=== PATIENT | male | born 1965 | race Caucasian/White ===

== ENCOUNTER → 2017-12-31 | Outpatient (CLI) | payer BC, OTHER ==
--- NOTE | 2017-12-31 13:51 | Diagnostic Imaging Report ---
INDICATION: Right knee pain. AP, oblique, and lateral views of the right knee are obtained. No fracture or acute bony abnormality is seen. There is no significant joint effusion. There is minor medial joint space osteophyte formation. IMPRESSION: Minor degenerative changes. No acute fracture or acute bony abnormality. Dictated by: Dictated on workstation # [id number]
== END ==
LOC: RAD 13:16
PROVIDERS: ATTEND Nurse Practitioner Family
DX: M17.11 Unilateral primary osteoarthritis, right knee (principal)
CPT/HCPCS: 73562

== ENCOUNTER 2019-03-11 05:37 | Outpatient (CLI) | payer BC, OTHER ==
[~2019-03-11] VITALS: Ht 185 cm; Wt 93.1 kg
== END 2019-03-11 16:13 | disposition home or self-care (01) ==
LOC: PREOP 05:37
PROVIDERS: ATTEND Surgery
DX: Z01.818 Encounter for other preprocedural examination (principal)

== ENCOUNTER 2019-03-18 07:50 | Day surgery (SDC) | payer BC, OTHER ==
[~2019-03-18] VITALS: Ht 185 cm; Wt 93.1 kg
[2019-03-18] VITALS (9 sets, daily range): BP systolic 100–128; BP diastolic 59–81
[2019-03-18] MEDS: LACTATED RINGERS 1,000 ML IV PRN ×2 (08:40→11:25)
[2019-03-18] MEDS ORDERED: ceFAZolin 2 GM IV Premixed 50 ML ONE (08:42)
[2019-03-18] MEDS ORDERED: ceFAZolin 2 GM IV Premixed 50 ML IV ONE (09:45)
[2019-03-18] MEDS ORDERED: BUP/EPI 0.5% 1:200,000 (SENSORCAINE) 30 ML VIAL ONE (10:02)
[2019-03-18] MEDS ORDERED: ONDANSETRON 4 MG/2 ML (SDV) Z0FRAN ONE ×2 (10:19→11:38)
[2019-03-18] MEDS ORDERED: fentaNYL INJECTION 100 MCG/2 ML AMP ONE (10:19)
[2019-03-18] MEDS ORDERED: MIDAZOLAM 2 MG/2 ML (VERSED) VIAL ONE (10:19)
[2019-03-18] MEDS ORDERED: proPOfol 200 MG/20 ML (DIPRIVAN) VIAL IV ONE (10:19)
[2019-03-18] MEDS ORDERED: ROCURONIUM 10 MG/ML 5 ML SYRINGE IV ONE (10:19)
[2019-03-18] MEDS ORDERED: SEVOFLURANE (ULTANE) 15 ML INHAL SOLN ONE ×4 (10:19→11:38)
--- NOTE | 2019-03-18 10:22 | Progress Note-Pre Operative ---
Pre-Operative Progress Note H&P Reviewed The H&P was reviewed, patient examined and no changes noted. Date Seen by Provider: Mar 18, 2019 Time Seen by Provider: 09:15 Date H&P Reviewed: Mar 18, 2019 Time H&P Reviewed: 09:10 Pre-Operative Diagnosis: Umbilical hernia and Screening Colonoscopy SONAL PEREZ APRN Mar 18, 2019 10:22
[2019-03-18] MEDS ORDERED: HYDR-3816 PO (10:25)
--- NOTE | 2019-03-18 10:25 | Discharge Inst-Surgical ---
D/C Lap Instructions-KIDO Reconcile Patient Problems Problems Reviewed?: Yes New, Converted, or Re-Newed RX: RX on Chart Follow Up Appt in 2 weeks Activity as tolerated No driving for 24 hours No driving while on pain medications Incentive Spirometry use every 2 hours while awake Regular Diet Symptoms to Report: Fever over 101 degree F, Nausea/Vomiting Infection Signs and Symptoms to report: Increased redness, Foul odor of wound, Increased drainage Bathing instructions: May shower Operative Area Clean/Dry; Keep incision clean/dry If any problems/questions: Contact your physician or go to Emergency Room SONAL PEREZ APRN Mar 18, 2019 10:25
[2019-03-18] MEDS ORDERED: ONDANSETRON 4 MG/2 ML (SDV) Z0FRAN IVP PRN ×2 (10:30→12:00)
[2019-03-18] MEDS ORDERED: GLYCOPYRROLATE 0.2 MG/ML (ROBINUL) 2 ML VIAL ONE (10:30)
[2019-03-18] MEDS ORDERED: morphine INJ 10 MG/ML 1ML (SYR OR VIAL) IVP PRN (10:30)
[2019-03-18] MEDS ORDERED: ACETAMINOPHEN 325 MG TABLET PO PRN (10:30)
[2019-03-18] MEDS ORDERED: NEOSTIGMINE 3 MG/3 ML VIAL ONE (10:30)
[2019-03-18] MEDS ORDERED: HYDROcodone/APAP 5 MG/325 MG (LORTAB) TAB PO ONE (10:30)
[2019-03-18] MEDS ORDERED: LIDOCAINE PF 2% 5 ML (XYLOCAINE) VIAL ONE (10:30)
--- NOTE | 2019-03-18 11:40 | Progress Note-Post Operative ---
Post-Operative Progess Note Surgeon (s)/Workforce Consultant (s) Surgeon Dr. Prasanna Gonzalez M.D. Workforce Consultant: Chavo Perez APRN Pre-Operative Diagnosis Umbilical hernia and Screening Colonoscopy Post-Operative Diagnosis Umbilical hernia (2 cm), Mild chronic stage I external and internal hemorrhoids. Procedure & Operative Findings Date of Procedure 03/18/19 Procedure Performed/Findings Umbilical hernia repair with mesh, screening colonoscopy Anesthesia Type GET Estimated Blood Loss Estimated blood loss (mL): Minimal Specimens/Packing Specimens Removed 1) Hernia sac CHAVO PEREZ DIRECTOR OF SLEEP Mar 18, 2019 11:40
[2019-03-18] MEDS ORDERED: fentaNYL INJECTION 100 MCG/2 ML AMP IVP ONE (12:00)
[2019-03-18] MEDS ORDERED: HYDROmorphone 2 MG/ML VIAL (DILAUDID) IV ONE (12:00)
[2019-03-18] MEDS ORDERED: morphine INJ 10 MG/ML 1ML (SYR OR VIAL) IVP ONE (12:00)
[2019-03-18] MEDS ORDERED: HYDROcodone/APAP 5 MG/325 MG (LORTAB) TAB ONE (13:01)
--- NOTE | 2019-03-18 14:29 | Anesthesia-General Post-Op ---
General Patient Condition Mental Status/LOC: Same as Preop Cardiovascular: Satisfactory Nausea/Vomiting: Absent Respiratory: Satisfactory Pain: Controlled Complications: Absent Post Op Complications Complications None Follow Up Care/Instructions Patient Instructions None needed. Anesthesia/Patient Condition Patient Condition Patient was seen after the procedure and he was doing well, no complaints, stable vital signs, no apparent adverse anesthesia problems. JOSE DAVIES DO Mar 18, 2019 14:29
--- NOTE | 2019-03-18 15:09 | OPERATIVE REPORT ---
DATE OF SERVICE: 03/18/2019 PREOPERATIVE DIAGNOSES: Symptomatic reducible umbilical hernia, screening colonoscopy. POSTOPERATIVE DIAGNOSES: Small umbilical hernia with a fascial defect approximately 2 cm in size. Mild chronic stage I external and internal hemorrhoids, no polyps or any neoplasms identified. PROCEDURES: Open umbilical hernia repair with mesh and colonoscopy. SURGEON: Emil Esparza MD. TRAVEL SALES CONSULTANT: Chavo Flores APRN. ANESTHESIA: General endotracheal. ESTIMATED BLOOD LOSS: Minimal. FINDINGS: Small umbilical hernia with a fascial defect approximately 2 cm in size. Mild chronic stage I external and internal hemorrhoids, no polyps or any neoplasms identified. DISPOSITION: The patient tolerated the procedure well. INDICATIONS: The patient is a 53-year-old male, who has had some issues with diarrhea some time ago. He was unsure of the reason and does not report any change in diet. He states that over time this did resolve on its own. He has not had a colonoscopy up to this point in his life. He does not report any red blood per rectum nor any dark tarry stools. He also has had an umbilical outpouching for the past 2 years, which has grown larger in size and become painful. Upon examination in the office, he was found to have a reducible umbilical hernia, which was tender to palpation. DESCRIPTION OF PROCEDURE: The patient was brought to the operating room, laid supine on the table. After adequate IV pain and sedative medications and general endotracheal intubation, the abdomen was prepped and draped in standard surgical fashion. A 0.5% Marcaine with epinephrine was used to anesthetize the overlying skin in the supraumbilical rim and a crescent-shaped skin incision made using a 15 blade. The subcutaneous tissue was then opened using electrocautery. The hernia sac was identified and completely dissected out using blunt dissection as well as electrocautery. We followed the dissection to the fascial base with the size of the defect approximately 2 cm in size. The hernia sac was then opened using Metzenbaum scissors with only omentum within the hernia sac. This was then fully excised using electrocautery under direct visualization. A 6.4 round coated polypropylene mesh was then placed in the defect and sutured transfascially to the mesh in a concentric manner using interrupted 1-0 Prolene sutures. The umbilicus was then sutured to the mesh using a [id number] suture using 2-0 Vicryl suture. Subcutaneous tissue was then reapproximated using 2-0 Vicryl interrupted sutures and the skin was closed using 4-0 Monocryl running subcuticular suture. Wound was then cleaned and covered with Dermabond. The tonsil sponges were then placed into the umbilicus followed by 4 x 4 gauze followed by large Op-Site. Under the same anesthesia, we then proceeded with the colonoscopy portion of procedure. The patient was placed in frog leg position and a digital rectal examination was performed, which revealed mild chronic stage I external and internal hemorrhoids, not actively edematous nor inflamed and no bleeding. Normal sphincter tone was felt and there were no palpable masses. Prostate gland was palpable and appeared normal. The endoscope was then intubated into the anus and rectum gently insufflated. The endoscope was then advanced to the valves of Thorpe of the rectum with no polyps or any neoplasms identified. We then proceeded through the sigmoid colon where no diverticulosis identified. The endoscope was then advanced into the descending, transverse and ascending colon to the cecum. These segments were normal. There were no polyps or any neoplasms identified throughout the colon or rectum. Endoscope was then slowly withdrawn while taking a second look and suctioning of residual air with no additional findings. The patient tolerated the procedure well. We will start IV normal pain medication as well as a clear liquid diet. Once he is tolerating clears, has good pain control with oral pain medications, ambulating well, we will discharge him home. He will be instructed to do no heavy lifting or exertion for the next two weeks. He also does not need another colonoscopy for another 10 years. Job ID: [id number] DocumentID: [id number] Dictated Date: 03/18/2019 11:51:02 Ux Ui Designer Date: 03/18/2019 15:08:48 Dictated By: EMIL ESPARZA MD
== END 2019-03-18 13:55 | disposition home or self-care (01) ==
LOC: SDC 07:50
PROVIDERS: ATTEND Surgery
DX: Z12.11 Encounter for screening for malignant neoplasm of colon (principal); K42.9 Umbilical hernia without obstruction or gangrene; K64.0 First degree hemorrhoids; K64.8 Other hemorrhoids; G43.909 Migraine, unspecified, not intractable, without status migrainosus; Z90.89 Acquired absence of other organs; Z79.891 Long term (current) use of opiate analgesic; Z82.3 Family history of stroke; Z83.3 Family history of diabetes mellitus
CPT/HCPCS: 87081; 94664

== ENCOUNTER → 2021-09-11 | Outpatient (CLI) | payer BC, OTHER ==
[~2021-09-11] MED LIST: HYDR-34 PO
--- NOTE | 2021-09-12 11:53 | Diagnostic Imaging Report ---
PROCEDURE: US Gallbladder. TECHNIQUE: Multiple real-time grayscale images were obtained over the right upper quadrant in various projections. INDICATION: Right upper quadrant pain EXAMINATION: Ultrasound gallbladder 09/11/2021 FINDINGS: Liver is unremarkable in appearance with no focal masses appreciated. No intrahepatic biliary dilatation is seen. The gallbladder is normal in size. No cholelithiasis is appreciated. There is no pericholecystic fluid. Gallbladder wall is at the upper limits of normal in thickness. Common duct normal in size. Pancreas obscured by overlying bowel gas. Visualized aorta and IVC unremarkable. Right kidney 11.8 cm in length. There is no hydronephrosis. There is no ascites. IMPRESSION: 1. Unremarkable visualized right upper quadrant structures other than the gallbladder wall towards the upper limits of normal in thickness but no other evidence for acute cholecystitis. Dictated by: Dictated on workstation # [id number]
== END ==
PROVIDERS: ATTEND Surgery
DX: R10.11 Right upper quadrant pain (principal); R19.7 Diarrhea, unspecified
CPT/HCPCS: 76705

== ENCOUNTER → 2021-09-17 | Outpatient (CLI) | payer BC, OTHER ==
[~2021-09-17] MED LIST changes: +CATHETER FLUSH 10 ML SYR IVP PRN
--- NOTE | 2021-09-17 12:58 | Diagnostic Imaging Report ---
INDICATION: Right upper quadrant pain. 5.47 mCi of mebrofenin was utilized. 8 ounces of Ensure was given orally for fatty meal. FINDINGS: There is prompt uptake of isotope by the liver. Gallbladder is visualized and normal fashion. There is free flow of isotope into the small bowel. The ejection fraction was calculated to be 40% at 50 minutes. IMPRESSION: Normal hepatobiliary study. The normal ejection fraction of the gallbladder. Dictated by: Dictated on workstation # [id number]
== END ==
LOC: CARD 10:00
PROVIDERS: ATTEND Surgery
DX: R10.11 Right upper quadrant pain (principal); R19.7 Diarrhea, unspecified
CPT/HCPCS: 78227; A9537

== ENCOUNTER → 2022-03-06 | Outpatient (CLI) | payer OTHER ==
[~2022-03-06] VITALS: Ht 185.5 cm; Wt 95.5 kg
[~2022-03-06] MED LIST changes: -CATHETER FLUSH 10 ML SYR IVP PRN
== END ==
LOC: PREOP 05:31
PROVIDERS: ATTEND Orthopaedic Surgery
DX: Z01.818 Encounter for other preprocedural examination (principal); S83.242A Other tear of medial meniscus, current injury, left knee, initial encounter; M22.42 Chondromalacia patellae, left knee

== ENCOUNTER 2022-03-13 09:28 | Day surgery (SDC) | payer OTHER ==
--- NOTE | 2022-03-05 13:56 | HISTORY AND PHYSICAL ---
DATE OF SERVICE: ADMISSION HISTORY AND PHYSICAL This will be for outpatient surgery on 03/13/2022 for left knee arthroscopy. HISTORY OF PRESENT ILLNESS: The patient is a 56-year-old gentleman with complaints of progressively worsening left knee pain. He reports a several-month history of progressively worsening discomfort. He reports pain following a golf outing, he reports he twisted and felt pain in the medial aspect of his knee and had some mild swelling. He reports that this is not improved with home exercise program, anti-inflammatories, and activity modifications. He reports pain on the medial aspect of the knee. He denies radicular symptoms. He reports a dull ache that is worse with sitting for prolonged periods and when he gets up and moves about. He reports it feels exactly the same as his right knee felt prior to his knee arthroscopy. Due to functional impairment and failure to improve with conservative measures, the patient elected to proceed with surgical intervention. REVIEW OF SYSTEMS: No chest pain, no shortness of breath, no dysuria. PAST MEDICAL HISTORY: Unremarkable. PAST SURGICAL HISTORY: Right knee arthroscopy and appendectomy. SOCIAL HISTORY: The patient drinks alcohol socially. Denies tobacco use. FAMILY HISTORY: Significant for diabetes. PRIMARY CARE PROVIDER: Dr. Avalos. MEDICATIONS: No current medications. ALLERGIES: No known drug allergies. RADIOGRAPHS: Revealed mild medial and patellofemoral joint space narrowing. PHYSICAL EXAMINATION: GENERAL: The patient is well-developed, well-nourished, in no acute distress. HEENT: Normocephalic, atraumatic. Pupils are equal, round and reactive to light. Oropharynx is clear. NECK: Supple, with no lymphadenopathy. LUNGS: Clear to auscultation bilaterally. HEART: Regular rate and rhythm. ABDOMEN: Soft, nontender, nondistended. EXTREMITIES: The left knee demonstrates tenderness along his medial joint line, has pain medially with Rustam's. He has audible click with Rustam's medially. No varus or valgus laxity. Negative anterior and posterior drawer. 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 PLAN: Left knee arthroscopy with partial medial meniscectomy and chondroplasty. The risks, benefits, options, ramifications and recovery were discussed at length with the patient. He understands and wishes to proceed. Job ID: [id number] DocumentID: [id number] Dictated Date: 03/05/2022 13:48:46 Cloth Printer Helper Date: 03/05/2022 13:55:33 Dictated By: SPEEDY RAMOS MD
[~2022-03-13] VITALS: Ht 185.5 cm; Wt 95.5 kg
[2022-03-13] VITALS (11 sets, daily range): BP systolic 119–141; BP diastolic 75–92
[~2022-03-13 09:28] MED LIST changes: +HYDROcodone/APAP 7.5 MG/325 MG (LORTAB, LORCET PLUS) TABLET PO PRN
[2022-03-13] MEDS ORDERED: ONDANSETRON 4 MG/2 ML (SDV) Z0FRAN ONE (09:45)
[2022-03-13] MEDS ORDERED: LACTATED RINGERS 1,000 ML IV PRN (09:45)
[2022-03-13] MEDS ORDERED: SEVOFLURANE (ULTANE) 15 ML INHAL SOLN ONE ×2 (09:45→11:17)
[2022-03-13] MEDS ORDERED: proPOfol 200 MG/20 ML (DIPRIVAN) VIAL IV ONE (09:45)
[2022-03-13] MEDS ORDERED: ceFAZolin INJECTION 1,000 MG VIAL IV ONE (09:45)
[2022-03-13] MEDS ORDERED: LIDOCAINE PF 2% 5 ML (XYLOCAINE) VIAL ONE (09:45)
[2022-03-13] MEDS ORDERED: fentaNYL INJ 100 MCG/2 ML AMP ONE (09:46)
[2022-03-13] MEDS ORDERED: MIDAZOLAM 2 MG/2 ML (VERSED) VIAL ONE (09:46)
[2022-03-13] MEDS ORDERED: ceFAZolin 1 GM/NS 50 ML (SDC/OR ONLY) IV ONE ×2 (10:00)
[2022-03-13] MEDS ORDERED: BUPIVACAINE 0.25% 30 ML (SENSORCAINE) VIAL ONE (10:03)
[2022-03-13] MEDS ORDERED: morphine PF (DURAMORPH) 10 MG/10 ML AMP ONE (10:03)
--- NOTE | 2022-03-13 10:37 | Progress Note-Pre Operative ---
Pre-Operative Progress Note Date of Available H&P: Mar 05, 2022 Date H&P Reviewed: Mar 13, 2022 Time H&P Reviewed: 10:27 Changes from last HP none Pre-Operative Diagnosis: left medial meniscus tear and chondromalacia SPEEDY RAMOS MD Mar 13, 2022 10:37
--- NOTE | 2022-03-13 10:38 | Progress Note-Post Operative ---
Post-Operative Progess Note Surgeon (s)/Pediatric Urologist (s) Surgeon SPEEDY RAMOS MD Pediatric Urologist: Carlos Enrique Bal Pre-Operative Diagnosis left medial meniscus tear and chondromalacia Post-Operative Diagnosis left medial and lateral meniscus tears and chondromalacia of the medial and lateral femoral condyles Procedure & Operative Findings Date of Procedure 03/13/22 Procedure Performed/Findings left knee arthroscopic partial medial and lateral meniscectomies and chondroplasty of medial and lateral femoral condyles Anesthesia Type GETA Estimated Blood Loss Estimated blood loss (mL): minimal Specimens/Packing Specimens Removed none Packing: none SPEEDY RAMOS MD Mar 13, 2022 10:38
[2022-03-13] MEDS: morphine PF (DURAMORPH) 10 MG/10 ML AMP IJ ONE (11:18)
[2022-03-13] MEDS ORDERED: HYDROmorphone 2 MG/ML VIAL (DILAUDID) IV ONE (11:30)
[2022-03-13] MEDS ORDERED: ONDANSETRON 4 MG/2 ML (SDV) Z0FRAN IVP PRN (11:30)
[2022-03-13] MEDS ORDERED: morphine INJ 10 MG/ML 1ML (SYR OR VIAL) IVP ONE (11:30)
[2022-03-13] MEDS ORDERED: BUPIVACAINE 0.25% 30 ML (SENSORCAINE) VIAL IJ ONE (11:36)
[2022-03-13] MEDS ORDERED: morphine INJ 10 MG/ML 1ML (SYR OR VIAL) ONE (11:48)
[2022-03-13] MEDS ORDERED: HYDROcodone/APAP 7.5 MG/325 MG (LORTAB, LORCET PLUS) TABLET PO ONE (12:26)
--- NOTE | 2022-03-13 13:04 | Anesthesia-General Post-Op ---
General Patient Condition Mental Status/LOC: Same as Preop Cardiovascular: Satisfactory Nausea/Vomiting: Absent Respiratory: Satisfactory Pain: Controlled Complications: Absent Post Op Complications Complications None Follow Up Care/Instructions Patient Instructions None needed. Anesthesia/Patient Condition Patient Condition Patient was doing well after the procedure with no complaints, stable vital signs, no apparent adverse anesthesia problems. No complications reported per nursing. JOSE DAVIES DO Mar 13, 2022 13:04
--- NOTE | 2022-03-13 13:30 | Physical Therapy Ortho Eval ---
PT Orthopedic Evaluation Type of Surgery Knee Scope left side WBAT Prior Level of Function Current Living Status: Spouse Locomotion (Upon Admit): Independent Established Durable Medical Eq: Crutches Subjective Subjective Patient in bed pre tx, agrees to PT, has no complains of pain. Patient has been using crutches recently and is familiar with it, doesn't need training in that aspect. Entry Into Home: Stairs With Railing Steps Into Home: 2 Motor Control Motor Control: Motor Control WNL ROM left knee extension 0 degrees, flexion 95 degrees Transfer SCALE: Activities may be completed with or without assistive devices. 2-Xsyveehygh-axpxhed completes the activity by him/herself with no assistance from a helper. 5-Set-up or Clean-up Assistance-helper sets up or cleans up; patient completes activity. [place] assists only prior to or following the activity. 4-Supervision or Touching Assistance-helper provides verbal cues and/or touching/steadying and/or contact guard assistance as patient completes activity. Assistance may be provided throughout the activity or intermittently. 3-Partial/Moderate Assistance-helper does LESS THAN HALF the effort. [place] lifts, holds or supports trunk or limbs, but provides less than half the effort. 2-Substantial/Maximal Assistance-helper does MORE THAN HALF the effort. [place] lifts or holds trunk or limbs and provides more than half the effort. 0-Thppzxukv-txouau does ALL the effort. Patient does none of the effort to complete the activity. Or, the assistance of 2 or more helpers is required for the patient to complete the activity. If activity was not attempted, code reason: 7-Patient Refused. 9-Not Applicable-not attempted and the patient did not perform the activity before the current illness, exacerbation or injury. 10-Not Attempted due to Environmental Limitations-(lack of equipment, weather restraints, etc.). 88-Not Attempted due to Medical Conditions or Safety Concerns. Gait Summary/Comments Refresher education on the correct way to go up and down stairs with crutches and without crutches. Treatment Rendered Treatment: Therapeutic Exercises Exercise Instruction: Quad Sets, Heel Slides, Ankle Pumps Assessment/Goals Goal Time Frame: 1 Visit Understands HEP: Yes Plan Treatment Plan: Discharge PT/Family Agrees to Plan: Yes Time Time In: 1256 Time Out: 1306 Total Billed Treatment Time: 10 Billed Treatment Time 1 visit EVL 10' ALICIA MILLS PT Mar 13, 2022 13:30
--- NOTE | 2022-03-13 21:48 | OPERATIVE REPORT ---
DATE OF SERVICE: 03/13/2022 PREOPERATIVE DIAGNOSES: 1. Left knee medial meniscus tear. 2. Left knee chondromalacia of the medial femoral condyle. POSTOPERATIVE DIAGNOSES: 1. Left knee medial meniscus tear. 2. Left knee lateral meniscus tear. 3. Left knee chondromalacia of the medial femoral condyle. 4. Left knee chondromalacia of the lateral femoral condyle. PROCEDURES: 1. Left knee arthroscopic partial medial meniscectomy. 2. Left knee arthroscopic partial lateral meniscectomy. 3. Left knee arthroscopic chondroplasty of the medial femoral condyle. 4. Left knee arthroscopic chondroplasty of the lateral femoral condyle. SURGEON: Alexis Ramos MD SHAREBROKER: Carlos Enrique Bal, who assisted throughout the procedure and closed the incisions. ANESTHESIA: General endotracheal by Dr. Murphy. TOURNIQUET TIME: Not applicable. ESTIMATED BLOOD LOSS: Minimal. DRAINS: None. COMPLICATIONS: None. POSTOPERATIVE PLAN: Routine arthroscopy protocol. The patient was transferred to the recovery room awake and in stable condition. STATEMENT OF MEDICAL NECESSITY: The patient is a 56-year-old gentleman with complaints of left medial knee pain, catching and locking. He had large effusions, tender along his medial joint line and pain medially with Rustam's. He tried rest, activity modifications, anti-inflammatories without relief. Due to functional impairment and failure to improve with conservative measures, the patient elected to proceed with surgical intervention. Examination under anesthesia revealed range of motion of 0/0/135 with negative Jennifer, negative anterior and posterior drawer. No varus or valgus laxity and negative pivot shift. ARTHROSCOPIC FINDINGS: Patella and trochlea demonstrated no significant chondral abnormalities. Medial and lateral gutters were clear. The ACL and PCL were intact. Medial compartment demonstrated complex tear of the posterior horn of the medial meniscus involving approximately one-third of the posterior horn. In addition, there were grade II chondral flaps of the central portion of femoral condyle in a 10 x 15 area. The lateral compartment demonstrated a tear of the posterior horn body junction involving approximately 30% of the junction with a grade III chondral flap over the anterior aspect of the femoral condyle in a 10 x 10 area. PROCEDURE IN DETAIL: After risks and benefits of procedure were discussed and questions were answered, informed consent was signed and placed on chart, the operative site was confirmed in the preoperative holding area initialed by the surgeon. The patient was transferred to the operating room. After adequate levels of general endotracheal anesthetic were obtained, a timeout was called, confirming the operative sites. Examination under anesthesia was performed with above findings noted. The left lower extremity was prepped and draped in the usual sterile fashion. Knee joint was injected with 60 mL of fluid and an inferolateral portal was placed for the arthroscope under direct visualization, inferior medial portal was created. The menisci and cruciates carefully probed with above findings noted. The unstable chondral flaps on the medial femoral condyle were debrided with shaver back to a stable edge and the posterior horn of the medial meniscus was debrided with a biter and shaver back to a stable edge. This was carefully probed with no further tearing or instability noted. The scope was redirected into the medial compartment and unstable chondral flaps on the medial femoral condyle were debrided with a shaver back to a stable edge and the posterior horn and body junction of the lateral meniscus was debrided with a biter and shaver back to a stable edge. This was carefully probed with no further tearing or instability noted. The knee was copiously irrigated. The portal sites were closed with 4-0 nylon in septic fashion. Knee was injected with Duramorph. Port sites were infiltrated with plain Marcaine and soft dressing was applied and the patient was transferred to the recovery room awake and in stable condition. Job ID: [id number] DocumentID: [id number] Dictated Date: 03/13/2022 11:24:48 Toll Settlement Clerk Date: 03/13/2022 21:47:20 Dictated By: ALEXIS RAMOS MD
== END 2022-03-13 13:31 | disposition home or self-care (01) ==
LOC: SDC 09:28
PROVIDERS: ATTEND Orthopaedic Surgery
DX: S83.282A Other tear of lateral meniscus, current injury, left knee, initial encounter (principal); S83.242A Other tear of medial meniscus, current injury, left knee, initial encounter; M94.262 Chondromalacia, left knee
CPT/HCPCS: 87081

== ENCOUNTER 2023-02-12 05:34 | Outpatient (CLI) | payer OTHER ==
[~2023-02-12] VITALS: Ht 185.5 cm; Wt 95.5 kg
[~2023-02-12 05:34] MED LIST changes: -HYDROcodone/APAP 7.5 MG/325 MG (LORTAB, LORCET PLUS) TABLET PO PRN
== END 2023-02-14 12:42 | disposition home or self-care (01) ==
LOC: PREOP 05:34
PROVIDERS: ATTEND Orthopaedic Surgery
DX: Z01.818 Encounter for other preprocedural examination (principal)

== ENCOUNTER 2023-02-19 09:19 | Day surgery (SDC) | payer OTHER ==
--- NOTE | 2023-02-12 14:41 | HISTORY AND PHYSICAL ---
DATE OF SERVICE: 02/19/2023 This will be for outpatient surgery on 02/19/2023 for left knee arthroscopy. HISTORY: The patient is a 57-year-old gentleman who previously underwent left knee arthroscopy and had been doing well until working out. He felt and heard a pop and since then has had swelling, catching and locking in his knee and was treated with an injection, which provided only temporary relief of his symptoms. He reports mechanical symptoms. Reports pain, worse with twisting and kneeling. Due to functional impairment and failure to improve with conservative measures, the patient has elected to proceed with surgical intervention. REVIEW OF SYSTEMS: No chest pain. No shortness of breath. No dysuria. PAST MEDICAL HISTORY: Unremarkable. PAST SURGICAL HISTORY: Bilateral knee arthroscopy and appendectomy. SOCIAL HISTORY: The patient drinks alcohol socially. He denies tobacco use. FAMILY HISTORY: Diabetes. PRIMARY CARE PROVIDER: [ ]. MEDICATIONS: None. ALLERGIES: NO KNOWN DRUG ALLERGIES. Radiographs revealed mild medial and patellofemoral joint space narrowing of the left knee. PHYSICAL EXAMINATION: GENERAL: The patient is well-developed, well-nourished, in no acute distress. HEENT: Normocephalic, atraumatic. LUNGS: Clear to auscultation bilaterally. HEART: Regular rate and rhythm. ABDOMEN: Soft, nontender, nondistended. EXTREMITIES: The left knee demonstrates a large effusion. He is tender along his medial joint line. He has pain medially with Rustam's. There is no varus or valgus laxity. Negative anterior and posterior drawer. He is tender along his medial joint line. 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 PLAN: Left knee arthroscopy with partial medial meniscectomy and chondroplasty. We discussed risks, benefits, options, ramifications and recovery. He understands and wishes to proceed. Job ID: [id number] DocumentID: [id number] Dictated Date: 02/04/2023 10:52:49 Director Law Enforcement Date: 02/04/2023 14:09:00 Dictated By: SPEEDY RAMOS MD
[~2023-02-19] VITALS: Ht 185.5 cm; Wt 95.5 kg
[2023-02-19] VITALS (10 sets, daily range): BP systolic 135–154; BP diastolic 80–101
[~2023-02-19 09:19] MED LIST changes: +HYDROcodone/ACETAMINOPHEN 7.5 MG/325 MG TABLET PO PRN
[2023-02-19] MEDS ORDERED: LACTATED RINGERS 1,000 ML 1,000 ML IV PRN (09:30)
[2023-02-19] MEDS ORDERED: ceFAZolin INJECTION 2,000 MG in NS (IVPB) 50 ML 50 ML IV ONE (09:30)
--- NOTE | 2023-02-19 11:18 | Progress Note-Pre Operative ---
Pre-Operative Progress Note Date of Available H&P: Feb 12, 2023 Date H&P Reviewed: Feb 19, 2023 Time H&P Reviewed: 11:18 Changes from last HP none Pre-Operative Diagnosis: left knee medial meniscus tear SPEEDY RAMOS MD Feb 19, 2023 11:18
--- NOTE | 2023-02-19 11:19 | Progress Note-Post Operative ---
Post-Operative Progess Note Surgeon (s)/Boring Machine Operator Vertical (s) Surgeon SPEEDY RAMOS MD Boring Machine Operator Vertical: Carlos Enrique Bal Pre-Operative Diagnosis left knee medial meniscus tear Post-Operative Diagnosis left knee medial meniscus tear and chondromalacia of the medial femoral condyle and patella Procedure & Operative Findings Date of Procedure 02/19/23 Procedure Performed/Findings left knee arthroscopic partial medial meniscectomy and chondroplasty of the medial femoral condyle and patella Anesthesia Type GETA Estimated Blood Loss Estimated blood loss (mL): minimal Specimens/Packing Specimens Removed none Packing: none SPEEDY RAMOS MD Feb 19, 2023 11:19
[2023-02-19] MEDS ORDERED: morphine PRESERVATIVE free 10 MG/10 ML AMP ONE (11:48)
[2023-02-19] MEDS ORDERED: BUPIVACAINE 0.25% 30 ML VIAL ONE (11:48)
[2023-02-19] MEDS ORDERED: fentaNYL INJECTION 100 MCG/2 ML VIAL ONE (12:14)
[2023-02-19] MEDS ORDERED: ONDANSETRON INJECTION 4 MG/2 ML (SDV) ONE (12:14)
[2023-02-19] MEDS ORDERED: dexAMETHasone INJ 10 MG/ML 1 ML VIAL ONE (12:14)
[2023-02-19] MEDS ORDERED: SEVOFLURANE (ULTANE) 15 ML INHAL SOLN ONE (12:14)
[2023-02-19] MEDS ORDERED: LIDOCAINE PF 2% 5 ML VIAL ONE (12:14)
[2023-02-19] MEDS ORDERED: proPOfol INJECTION 200 MG/20 ML VIAL IV ONE (12:14)
[2023-02-19] MEDS ORDERED: MIDAZOLAM INJ 2 MG/2 ML VIAL ONE (12:15)
[2023-02-19] MEDS ORDERED: BUPIVACAINE 0.25% 30 ML VIAL INJ ONE (12:40)
[2023-02-19] MEDS ORDERED: morphine PRESERVATIVE free 10 MG/10 ML AMP INJ ONE (12:42)
--- NOTE | 2023-02-19 12:56 | Anesthesia-General Post-Op ---
General Patient Condition Mental Status/LOC: Same as Preop Cardiovascular: Satisfactory Nausea/Vomiting: Absent Respiratory: Satisfactory Pain: Controlled Complications: Absent Post Op Complications Complications None Follow Up Care/Instructions Patient Instructions None needed. Anesthesia/Patient Condition Patient Condition Patient is doing well, no complaints, stable vital signs, no apparent adverse anesthesia problems. No complications reported per nursing. AAKASH GARCIA CRNA Feb 19, 2023 12:56
[2023-02-19] MEDS ORDERED: fentaNYL INJECTION 100 MCG/2 ML VIAL IVP ONE (13:00)
[2023-02-19] MEDS ORDERED: ONDANSETRON INJECTION 4 MG/2 ML (SDV) IVP PRN (13:00)
--- NOTE | 2023-02-19 20:24 | OPERATIVE REPORT ---
DATE OF SERVICE: 02/19/2023 PREOPERATIVE DIAGNOSES: 1. Left knee medial meniscus tear. 2. 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 POSTOPERATIVE DIAGNOSES: 1. Left knee medial meniscus tear. 2. 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 3. Left knee chondromalacia of the patella. PROCEDURES: 1. Left knee arthroscopic partial medial meniscectomy. 2. Left knee arthroscopic chondroplasty of medial femoral condyle. 3. Left knee arthroscopic chondroplasty of the patella. SURGEON: Alexis Ramos MD JAVA TECH LEAD: Carlos Enrique Bal, who assisted throughout the procedure and closed the incisions. ANESTHESIA: General endotracheal by Nakia Alvarez CRNA. TOURNIQUET TIME: Not applicable. ESTIMATED BLOOD LOSS: Minimal. DRAINS: None. COMPLICATIONS: None. POSTOPERATIVE PLAN: Routine arthroscopy protocol. The patient was transferred to the recovery room awake and in stable condition. STATEMENT OF MEDICAL NECESSITY: The patient is a 57-year-old gentleman with complaints of left medial knee pain, catching, locking and swelling. He has undergone treatment with injections with only temporary relief of his symptoms. He had pain along his medial joint line, pain medially with Rustam's. Due to functional impairment and failure to improve with conservative measures, the patient elected to proceed with surgical intervention. Examination under anesthesia revealed range of motion of 0/0/135 with negative Jennifer, negative anterior and posterior drawer. No varus or valgus laxity and negative pivot shift. ARTHROSCOPIC FINDINGS: The patella demonstrated grade II chondral flaps in a 10 x 10 area superiorly. The trochlea demonstrated no significant chondral abnormalities. Medial and lateral gutters were clear. The ACL and PCL were intact. Lateral compartment demonstrated no meniscal or chondral pathology. The medial compartment demonstrated a tear of the posterior horn involving approximately one-third of the posterior horn remnant and a tear at the junction of the anterior horn and body. In addition, there were grade II chondral flaps over the medial aspect of the femoral condyle in a 10 x 15 area. DESCRIPTION OF PROCEDURE: After risks and benefits of the procedure were discussed and questions were answered and informed consent was signed and placed on chart, the operative site was confirmed in the preoperative holding initialed by surgeon. The patient was then transported to the operating room. After adequate levels of general endotracheal anesthetic were obtained, a timeout was called, confirming the operative site. Examination under anesthesia was performed with the above findings noted. Left lower extremity was prepped and draped in the usual sterile fashion. The knee joint was injected with 60 mL fluid and standard inferolateral portal was placed with arthroscope under direct visualization and inferior medial portal was placed. Diagnostic arthroscopy was carried out. The unstable chondral flaps on the medial femoral condyle were debrided with a shaver back to a stable edge and the medial meniscus tear was debrided with a biter and shaver back to a stable edge. This was carefully probed with no further tearing or instability noted. The unstable chondral flaps on the patella were debrided with a shaver back to a stable edge after redirecting the scope and instruments into the patellofemoral joint. The knee joint was copiously irrigated. The portal sites were closed with 4-0 nylon in simple interrupted fashion. Knee was injected with Duramorph. The portal sites were infiltrated with plain Marcaine. A soft dressing was applied. The patient was transferred to the recovery room awake and stable condition. Job ID: [id number] DocumentID: [id number] Dictated Date: 02/19/2023 12:57:18 Destination Sign Repairer Date: 02/19/2023 20:22:00 Dictated By: ALEXIS RAMOS MD
== END 2023-02-19 14:46 ==
LOC: SDC 09:19
PROVIDERS: ATTEND Orthopaedic Surgery
DX: S83.242A Other tear of medial meniscus, current injury, left knee, initial encounter (principal); M94.262 Chondromalacia, left knee
CPT/HCPCS: 87081